=== PATIENT | male | born 1975 | race Caucasian/White ===

== ENCOUNTER 2021-10-17 20:30 | Emergency (ER) | payer SELFPAY ==
[2021-10-17] MEDS ORDERED: Ketorolac Tromethamine 60 MG/2 ML VIAL ONE (21:19)
== END 2021-10-17 22:43 | disposition home or self-care (01) ==
LOC: EEVIPCON 20:30 → MADERS 20:30
DX: S16.1XXA Strain of muscle, fascia and tendon at neck level, initial encounter (principal); S46.912A Strain of unspecified muscle, fascia and tendon at shoulder and upper arm level, left arm, initial encounter; X58.XXXA Exposure to other specified factors, initial encounter
CPT/HCPCS: 96372; J1885